=== PATIENT | male | born 1990 | race Two or more races ===

== ENCOUNTER 2023-05-27 20:13 | Emergency (ER) | payer BC, OTHER ==
[2023-05-27 20:21] VITALS: TEMP 98.9
[2023-05-27] MEDS ORDERED: CEPHALEXIN 500MG STARTER PACK 4 CAP BTL PO STA (22:04)
[2023-05-27] MEDS ORDERED: DIPH,PERTUS(ACELL)TETVAC-LF 0.5 ML VIAL IM ONE (22:04)
[2023-05-27] MEDS ORDERED: CEPHALEXIN 500 MG CAP PO STA (22:04)
--- NOTE | 2023-05-27 22:04 | ED ---
Wound/Laceration HPI - General Chief Complaint: Wound/Laceration Stated Complaint: Left thumb laceration-[facility] Time Seen by Provider: 05/27/23 21:17 Source: patient, RN notes reviewed, old records reviewed Mode of arrival: ambulatory - History of Present Illness Initial Comments: This is a 33-year-old male to the emergency department for evaluation sustained left thumb laceration. 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 Patient was using a clean knife sharpening a knife and cut his left thumb. Patient does have pain and bleeding from the left decreased range of motion he believes secondary to pain. No other injury noted. Patient is unsure of tetanus status. No medical history takes no medications -: hour(s) Extremity Location: Left: Hand Place: home Patient Tetanus UTD: Yes Context: accidental Associated Symptoms: none Treatments Prior to Arrival: bandage - Related Data Allergies Allergy/AdvReac Type Severity Reaction Status Date / Time No Known Allergies Allergy Verified 05/27/23 20:19 Review of Systems ROS Statement: Those systems with pertinent positive or pertinent negative responses have been documented in the HPI. ROS Other: All systems not noted in ROS Statement are negative. Past Medical History Past Medical History: No Reported History History of Any Multi-Drug Resistant Organisms: None Reported Past Surgical History: No Surgical Hx Reported Past Psychological History: Anxiety Smoking Status: Never smoker Past Alcohol Use History: None Reported Past Drug Use History: None Reported General Exam General appearance: alert, in no apparent distress, anxious Head exam: Present: atraumatic, normocephalic, normal inspection Eye exam: Present: normal appearance, PERRL, EOMI. Absent: scleral icterus, conjunctival injection, periorbital swelling ENT exam: Present: normal exam, mucous membranes moist Neck exam: Present: normal inspection. Absent: tenderness, meningismus, lymphadenopathy Respiratory exam: Present: normal lung sounds bilaterally. Absent: respiratory distress, wheezes, rales, rhonchi, stridor Cardiovascular Exam: Present: regular rate, normal rhythm, normal heart sounds. Absent: systolic murmur, diastolic murmur, rubs, gallop, clicks GI/Abdominal exam: Present: soft, normal bowel sounds. Absent: distended, tenderness, guarding, rebound, rigid Extremities exam: Present: normal inspection, full ROM, normal capillary refill, other (Left thumb laceration 4 cm). Absent: tenderness, pedal edema, joint swelling, calf tenderness Back exam: Present: normal inspection Neurological exam: Present: alert, oriented X3, CN II-XII intact Psychiatric exam: Present: normal affect, normal mood Skin exam: Present: warm, dry, intact, normal color. Absent: rash Course Vital Signs 05/27/23 05/27/23 20:17 22:28 Temperature 98.9 F Pulse Rate 90 76 Respiratory 18 16 Rate Blood Pressure 129/79 126/77 O2 Sat by Pulse 95 Oximetry - Reevaluation(s) Reevaluation #1: 05/27/23 22:01 Medical records reviewed Reevaluation #2: 05/27/23 22:01 Patient symptoms improved Reevaluation #3: 05/27/23 22:01 patient informed results questions are answered Reevaluation #4: 05/27/23 Was pt. sent in by a medical professional or institution ([facility], [facility], urgent care, hospital, or senior living...) When possible be specific @ -no Did you speak to anyone other than the patient for history (EMS, parent, family, police, friend...)? What history was obtained from this source @ -no Did you review nursing and triage notes (agree or disagree)? Why? @ -agree Are old charts reviewed (outside hosp., previous admission, EMS record, old EKG, old radiological studies, urgent care reports/EKG's, senior living records)? Report findings @ -yes Differential Diagnosis (chest pain, altered mental status, abdominal pain women, abdominal pain men, vaginal bleeding, weakness, fever, dyspnea, syncope, headache, dizziness, GI bleed, back pain, seizure, CVA, palpatations, mental health, musculoskeletal)? @ -prior EKG interpreted by me (3pts min.). @ -no X-rays interpreted by me (1pt min.). @ -no CT interpreted by me (1pt min.). @ -no U/S interpreted by me (1pt. min.). @ -no What testing was considered but not performed or refused? (CT, X-rays, U/S, labs)? Why? @ -none What meds were considered but not given or refused? Why? @ -none Did you discuss the management of the patient with other professionals (professionals i.e. [facility], [facility], lab, RT, psych nurse, social sciences lecturer, baseball winder, teacher, tactical intelligence officer, hospice case manager)? Give summary @ -no Was smoking cessation discussed for >3mins.? @ -no Was critical care preformed (if so, how long)? @ -no Were there social determinants of health that impacted care today? How? (Homelessness, low income, unemployed, alcoholism, drug addiction, transpor tation, low edu. Level, literacy, decrease access to med. care, assisted, rehab)? @ -none Was there de-escalation of care discussed even if they declined (Discuss DNR or withdrawal of care, Hospice)? DNR status @ -no What co-morbidities impacted this encounter? (DM, HTN, Smoking, COPD, CAD, Cancer, CVA, ARF, Chemo, Hep., AIDS, mental health diagnosis, sleep apnea, morbid obesity)? @ -none Was patient admitted / discharged? Hospital course, mention meds given and route, prescriptions, significant lab abnormalities, going to OR and other pertinent info. @ - 33 male to the emergency department with self-sustaining left thumb laceration, knife clean knife working in the kitchen. Lacerations repaired here in the ER there is questionable tenderness injury is patient does not fully move that, although we do believe that wrist pain. Lacerations repaired no bleeding patient can be discharged home Discharge Undiagnosed new problem with uncertain prognosis? @ -no Drug Therapy requiring intensive monitoring for toxicity (Heparin, Nitro, Insulin, Cardizem)? @ -no Were any procedures done? @ -Laceration repair Diagnosis/symptom? @ -Left thumb laceration with repair Acute, or Chronic, or Acute on Chronic? @ -Acute Uncomplicated (without systemic symptoms) or Complicated (systemic symptoms)? @ -Complicated Side effects of treatment? @ -no Exacerbation, Progression, or Severe Exacerbation? @ -exacerbation Poses a threat to life or bodily function? How? (Chest pain, [place], [place], pneumonia, PE, COPD, DKA, ARF, appy, cholecystitis, CVA, Diverticulitis, Homicidal, Suicidal, threat to staff... and all critical care pts) @ -no Procedures - Laceration Laceration #1 Consent Obtained: verbal consent Indication: laceration Site: hand Size (cm): 4 Description: linear Depth: simple, single layer Anesthetic Used: lidocaine 1% Anesthesia Technique: local infiltration Pre-repair: wound explored, irrigated extensively, deep structures intact Type of Sutures: nylon Size of Sutures: 5-0 Technique: simple, interrupted Patient Tolerated Procedure: well Medical Decision Making - Medical Decision Making 33 male to the emergency department with self-sustaining left thumb laceration, knife clean knife working in the kitchen. Lacerations repaired here in the ER there is questionable tenderness injury is patient does not fully move that, although we do believe that wrist pain. Lacerations repaired no bleeding patient can be discharged home Disposition Clinical Impression: Laceration, Laceration of left thumb Narrative: Question Tendon Injury Disposition: HOME SELF-CARE Condition: Good Instructions (If sedation given, give patient instructions): Care For Your Stitches (ED), Laceration (ED) Is patient prescribed a controlled substance at d/c from ED?: No Referrals: None,Stated [Primary Care Provider] - 1-2 days Time of Disposition: 22:00
[2023-05-27] MEDS ORDERED: BACITRACIN OINT 1 EACH PACKET TOPICAL ONE (22:05)
[2023-05-27 22:34] VITALS: BP 126/77; PULSE 76; RESP 16
== END 2023-05-27 22:35 | disposition home or self-care (01) ==
LOC: EC 20:13
DX: S61.012A Laceration without foreign body of left thumb without damage to nail, initial encounter (principal); Z86.59 Personal history of other mental and behavioral disorders; Z23 Encounter for immunization; W26.0XXA Contact with knife, initial encounter
CPT/HCPCS: 12002; 90471; 90715; 99282

== ENCOUNTER → 2023-12-04 | Outpatient (CLI) | payer SELFPAY ==
--- NOTE | 2023-12-04 16:15 | US ---
EXAMINATION TYPE: US scrotum with doppler. Grayscale and color Doppler Duplex imaging performed of julia aguirre scrotum. DATE OF EXAM: 12/04/2023 COMPARISON: NONE CLINICAL INDICATION: Male, 33 years old with history of N50.812 LEFT TESTICULAR PAIN; Pt states left testicle pain x 2 days EXAM MEASUREMENTS: TESTICLES: Right Testicle: 5.1 x 2.8 x 3.2 cm Left Testicle: 4.4 x 2.8 x 3.1 cm EPIDIDYMIS HEAD: Right Epididymis: 1.1 cm Left Epididymis: 1.3 cm Doppler performed to assess for testicular vascularity; good bilateral color flow and waveforms are s een. There is no evidence of testicular torsion. Presence of hydroceles: NO Presence of varicoceles: No Right epi head cyst= 0.4 cm Left epi head cyst= 0.8 cm Left epididymis appeared thickened, heterogeneous and slightly hypervascular Results called to Geeta at 's office at time of exam IMPRESSION: 1. Correlate for left-sided epididymitis. 2. Epididymal head cysts.
== END | disposition home or self-care (01) ==
LOC: RADUSWWP 15:07
PROVIDERS: ATTEND Family Medicine
DX: N50.3 Cyst of epididymis (principal)
CPT/HCPCS: 76870; 93975

== ENCOUNTER 2024-07-03 17:05 | Observation (INO) | payer OTHER ==
--- NOTE | 2024-07-03 17:46 | ED ---
Skin/Abscess/FB HPI - General Chief complaint: Skin/Abscess/Foreign Body Stated complaint: Skin Abscess Time Seen by Provider: 07/03/24 17:23 Source: patient, RN notes reviewed Mode of arrival: ambulatory Limitations: no limitations - History of Present Illness Initial comments: This is a 34-year-old male who presents to the emergency department for a rectal abscess. Patient states that he noticed a lump on the rectum a couple of days ago and since then it has gotten larger. He initially thought this was a hemorrhoid. He went to urgent care and they advised that this may be an abscess and he was advised to come to the emergency department for further evaluation. Patient noted be febrile here. He has not measured any fevers at home. Denies any history of abscesses in the past, but states that the pain is becoming fairly bothersome. MD complaint: abscess/boil - Related Data Allergies Allergy/AdvReac Type Severity Reaction Status Date / Time No Known Allergies Allergy Verified 07/03/24 17:20 Review of Systems ROS Statement: Those systems with pertinent positive or pertinent negative responses have been documented in the HPI. ROS Other: All systems not noted in ROS Statement are negative. Past Medical History Past Medical History: No Reported History History of Any Multi-Drug Resistant Organisms: None Reported Past Surgical History: No Surgical Hx Reported Past Psychological History: Anxiety Smoking Status: Never smoker Past Alcohol Use History: None Reported Past Drug Use History: None Reported General Exam Limitations: no limitations General appearance: alert, in no apparent distress Head exam: Present: atraumatic, normocephalic, normal inspection Respiratory exam: Present: normal lung sounds bilaterally. Absent: respiratory distress, wheezes, rales, rhonchi, stridor Cardiovascular Exam: Present: tachycardia, normal heart sounds Rectal exam: Present: other (Perianal abscess at the superior aspect of the anus extending past the dentate line. Overlying tenderness. No drainage.) Neurological exam: Present: alert, oriented X3, CN II-XII intact Psychiatric exam: Present: normal affect, normal mood Course Vital Signs 07/03/24 07/03/24 07/03/24 17:15 19:38 21:18 Temperature 101.5 F H 99.7 F H 99.0 F Pulse Rate 118 H 95 Respiratory 20 18 Rate Blood Pressure 130/84 110/66 O2 Sat by Pulse 99 95 Oximetry 07/03/24 22:27 Temperature 98.6 F Pulse Rate 93 Respiratory 18 Rate Blood Pressure 125/81 O2 Sat by Pulse 97 Oximetry Medical Decision Making - Medical Decision Making This is a 34 year old male who presents to the emergency department for a rectal abscess. Was pt. sent in by a medical professional or institution? @ -Urgent care Did you speak to anyone other than the patient for history? @ -No Did you review nursing and triage notes? @ -Yes, and I agree, it is accurate with regards to the patient's symptoms. Were old charts reviewed? @ -No Differential Diagnosis? @ -Differential Rectal Lump: Abscess, hemorrhoid, pilonidal cyst, tumor, this is not meant to be an all-incl usive list. EKG interpreted by me (3pts min.)? @ -Not obtained X-rays interpreted by me (1pt min.)? @ -Not obtained CT interpreted by me (1pt min.)? @ -CT scan of the abdomen and pelvis obtained. My interpretation identifies a perirectal abscess. U/S interpreted by me (1pt. min.)? @ -Not obtained What testing was considered but not performed? (CT, X-rays, U/S, labs)? Why? @ -None What meds were considered but not given? Why? @ -None Did you discuss the management of the patient with other professionals? @ -Yes, Dr. Salazar, who accepts the patient for admission. Did you reconcile home meds? @ -No Was smoking cessation discussed for >3mins.? @ -No Was critical care preformed (if so, how long)? @ -No Were there social determinants of health that impacted care today? How? (Homelessness, low income, unemployed, alcoholism, drug addiction, transportation, low edu. Level, literacy, decrease access to med. care, long term, r ehab)? @ -No Was there de-escalation of care discussed even if they declined? (Discuss DNR or withdrawal of care, Hospice)? @ -No What co-morbidities impacted this encounter? (DM, HTN, Smoking, COPD, CAD, Cancer, CVA, Hep., AIDS, mental health diagnosis, sleep apnea, morbid obesity)? @ -None Was patient admitted / discharged? @ -Admitted. Patient febrile and tachycardic on arrival. On exam patient's abscess was on the superior aspect of the anus and appeared to approach/pass the dentate line. There was concern that if we were to bhavik this, there could be damage to the sphincter muscles and we discussed that it be best to have a surgeon manage this. Patient initially hesitant due to insurance difficulties but later agreeable to admission. Lab work fairly unremarkable, CRP was elevated at 4.2. CT scan of the abdomen and pelvis demonstrates a posterior perirectal fluid collection suggesting an abscess. Patient admitted to medicine for perirectal abscess with general surgery consult. IV antibiotics administered. Patient kept n.p.o. after midnight for potential surgical intervention in the morning. Case management consulted to help the patient with getting established with medical insurance. Case discussed with ED attending, Dr. Brady. Undiagnosed new problem with uncertain prognosis? @ -None Drug Therapy requiring intensive monitoring for toxicity (Heparin, Nitro, Insulin, Cardizem)? @ -None Were any procedures done? @ -None Diagnosis/symptom? @ -Perirectal abscess Acute, or Chronic, or Acute on Chronic? @ -Acute Uncomplicated (without systemic symptoms) or Complicated (systemic symptoms)? @ -Uncomplicated Side effects of treatment? @ -None Exacerbation, Progression, or Severe Exacerbation] @ -Not applicable Poses a threat to life or bodily function? @ -Yes, can lead to severe infection - Lab Data Result diagrams: 07/03/24 19:05 07/03/24 19:05 Lab Results 07/03/24 07/03/24 07/03/24 Range/Units 19:05 19:05 19:05 WBC 7.1 (3.8-10.6) k/uL RBC 4.50 (4.30-5.90) m/uL Hgb 13.2 (13.0-17.5) gm/dL Hct 39.7 (39.0-53.0) % MCV 88.3 (80.0-100.0) fL MCH 29.2 (25.0-35.0) pg MCHC 33.1 (31.0-37.0) g/dL RDW 13.3 (11.5-15.5) % Plt Count 194 (150-450) k/uL MPV 7.4 Neutrophils % 88 % Lymphocytes % 7 % Monocytes % 4 % Eosinophils % 0 % Basophils % 0 % Neutrophils # 6.2 (1.3-7.7) k/uL Lymphocytes # 0.5 L (1.0-4.8) k/uL Monocytes # 0.3 (0-1.0) k/uL Eosinophils # 0.0 (0-0.7) k/uL Basophils # 0.0 (0-0.2) k/uL Sodium 135 L (137-145) mmol/L Potassium 3.6 (3.5-5.1) mmol/L Chloride 101 (98-107) mmol/L Carbon Dioxide 26 (22-30) mmol/L Anion Gap 8 mmol/L BUN 18 (9-20) mg/dL Creatinine 0.81 (0.66-1.25) mg/dL Est GFR (CKD-EPI)AfAm >90 (>60 ml/min/1.73 sqM) Est GFR (CKD-EPI)NonAf >90 (>60 ml/min/1.73 sqM) Glucose 89 (74-99) mg/dL Plasma Lactic Acid Bishnu 0.9 (0.7-2.0) mmol/L Calcium 9.7 (8.4-10.2) mg/dL Total Bilirubin 1.6 H (0.2-1.3) mg/dL AST 29 (17-59) U/L ALT 11 (4-49) U/L Alkaline Phosphatase 93 (38-126) U/L C-Reactive Protein 4.2 H (<1.0) mg/dL Total Protein 7.0 (6.3-8.2) g/dL Albumin 4.6 (3.5-5.0) g/dL - Radiology Data Radiology results: report reviewed, image reviewed Disposition Clinical Impression: Perirectal abscess Disposition: ADMITTED IP TO THIS HOSP
[2024-07-03] MEDS: ACETAMINOPHEN TAB 500 MG TAB PO STA (18:09)
[2024-07-03] MEDS: KETOROLAC 15 MG/ML 1 ML VIAL IM STA (18:09)
[2024-07-03] MEDS: MORPHINE SULFATE 4 MG/ML SYRINGE IM STA (18:10)
[2024-07-03] MEDS: LIDOCAINE 1% INJ 10MG/ML (20 ML MDV) SQ ONE (18:13)
[2024-07-03] MEDS ORDERED: VANCOMYCIN IV PER PHARMACY 1 EACH MISC MISCELLANE PRN (19:03)
[2024-07-03 19:29] LABS: Basophils % (A) 0 %; Eosinophils % (A) 0 %; HCT 39.7 % (39.0-53.0); HGB 13.2 gm/dL (13.0-17.5); Lymphocytes # (A) 0.5 k/uL (1.0-4.8); Lymphocytes % (A) 7 %; MCH 29.2 pg (25.0-35.0); MCHC 33.1 g/dL (31.0-37.0); MCV 88.3 fL (80.0-100.0); Mean Platelet Volume 7.4; Monocytes # (A) 0.3 k/uL (0-1.0); Monocytes % (A) 4 %; Neutrophils # (A) 6.2 k/uL (1.3-7.7); Neutrophils % (A) 88 %; Platelet Count 194 k/uL (150-450); RDW 13.3 % (11.5-15.5); WBC 7.1 k/uL (3.8-10.6)
[2024-07-03] MEDS: CEFEPIME 2 GM in SODIUM CHLORIDE 0.9% 100 ML IVPB SCH (19:34)
[2024-07-03 19:43] LABS: ALT 11 U/L (4-49); AST 29 U/L (17-59); African American GFR (CKD) >90 (>60 ml/min/1.73 sqM); Albumin 4.6 g/dL (3.5-5.0); Alkaline Phosphatase 93 U/L (38-126); Anion Gap 8 mmol/L; Blood Urea Nitrogen 18 mg/dL (9-20); C Reactive Protein 4.2 mg/dL (<1.0); Calcium 9.7 mg/dL (8.4-10.2); Carbon Dioxide 26 mmol/L (22-30); Chloride 101 mmol/L (98-107); Glucose 89 mg/dL (74-99); Non-African American GFR(CKD) >90 (>60 ml/min/1.73 sqM); Potassium 3.6 mmol/L (3.5-5.1); Sodium 135 mmol/L (137-145); Total Bilirubin 1.6 mg/dL (0.2-1.3)
[2024-07-03] MEDS: VANCOMYCIN 1,000 MG in SODIUM CHLORIDE 0.9% 250 ML IVPB STA (20:19)
[2024-07-03] MEDS: HYDROmorphone 1 MG/ML 1 ML SYRINGE IVP STA (22:00)
--- NOTE | 2024-07-03 22:20 | CT ---
EXAMINATION TYPE: CT abdomen pelvis w con CT DLP: 466.5 mGycm, Automated exposure control for dose reduction was used. DATE OF EXAM: 07/03/2024 8:23 PM COMPARISON: None. CLINICAL INDICATION:Male, 34 years old with history of Rectal abscess; Rectal abscess TECHNIQUE: Axial CT of the abdomen and pelvis. Sagittal and coronal reformats were created on a [employer] workstation. Contrast used:100 ml mL of Isovue 300 with IV Contrast, (none if empty) Oral contrast used: without Oral Contrast (none if empty) FINDINGS: LOWER CHEST: Unremarkable ABDOMEN LIVER: Unremarkable GALLBLADDER AND BILE DUCTS: Unremarkable gallbladder. No biliary ductal dilatation. PANCREAS: Unremarkable. SPLEEN: Unremarkable. ADRENAL GLANDS: Unremarkable. KIDNEYS AND URETERS: Kidneys enhance symmetrically. No evidence of hydronephrosis or visible renal ca lculus. The ureters are unremarkable. PELVIS BLADDER: Unremarkable REPRODUCTIVE: Unremarkable. ABDOMEN & PELVIS STOMACH AND BOWEL: Stomach and small bowel are nondistended, no evidence of obstruction. No signs of appendicitis. Mild/moderate stool throughout the colon. At the posterior aspect of the distal rectum near the midline there is a 19.5 x 13 mm fluid collection suggesting perirectal abscess. Mild edema a nd cellulitis suggested in the soft tissues posterior to this along the upper intergluteal crease. PERITONEUM/RETROPERITONEUM: No evidence of pneumoperitoneum or free fluid. VASCULATURE: Aorta and major branches are grossly unremarkable. No AAA. Portal veins are enhancing. Splenic vein is patent. Normal caliber IVC. LYMPH NODES: No enlarged nodes by CT size criteria. SOFT TISSUE/ABDOMINAL WALL: Unremarkable MUSCULOSKELETAL: No acute osseous abnormalities. IMPRESSION: Posterior perirectal fluid collection suggesting abscess, described above.
[2024-07-03] MEDS: ONDANSETRON 4 MG/2 ML VIAL IVP STA (22:39)
[2024-07-03] MEDS ORDERED: ONDANSETRON 4 MG/2 ML VIAL IVP PRN (23:20)
[2024-07-03] MEDS ORDERED: ACETAMINOPHEN TAB 325 MG TAB PO PRN (23:20)
[2024-07-03] MEDS ORDERED: NALOXONE 0.4 MG/ML 1 ML VIAL IV PRN (23:20)
[2024-07-03] MEDS ORDERED: IBUPROFEN 400 MG TAB PO PRN (23:20)
[2024-07-03] MEDS: METOCLOPRAMIDE 5 MG/ML 2 ML VIAL IVP STA (23:45)
[2024-07-03] MEDS: AMPICILLIN-SULBACTAM 3 GM in SODIUM CHLORIDE 0.9% 100 ML IVPB STA (23:48)
--- NOTE | 2024-07-04 00:58 | P.HPIM ---
History of Present Illness H&P Date: 07/03/24 Chief Complaint: rectal pain Patient is a 34-year-old male with no medical history presents to the ED with rectal abscess. Patient states he noticed an irritation and itch 2 days ago which improved which progressively turned into a lump that kept getting worse. He describes it as a red, tender, fluctuating mass with no drainage. At worst he said the pain was a 10/10 to the point where he found it difficult bending and squatting. The pain was made worse when he coughed. States that this has never happened before and has no history of any abscesses. He went to urgent care and was advised to go to the emergency department for further evaluation Patient denies any fevers or chills. Review of systems: Pertinent positives and negatives as discussed in HPI, a complete review of systems was performed and all other systems are negative. Social history: Tobacco: Denies tobacco use Alcohol: Denies alcohol use Recreational drugs: Denies illicit drug use Travel: No recent travel Occupation: Did not obtain Physical examination: Vitals: T 98.6, [place] 93, RR 18, BP 125/81, O2 sat 97% on room air General: non toxic, no distress, appears at stated age, normal weight Derm: no unusual rashes/lesions, warm Head: atraumatic, normocephalic, symmetric Eyes: EOMI, anicteric sclera, pupils equal round reactive to light ENT: Nose and ears atraumatic Mouth: no lip lesion, mucus membranes moist Cardiovascular: S1S2 reg, no murmur, positive dorsalis pedis pulse bilateral, no edema Lungs: CTA bilateral, no rhonchi, no rales, no accessory muscle use Abdominal: soft, nontender to palpation, no guarding Rectal: Anorectal abscess present with tenderness on palpation, no drainage noted Ext: muscle strength 5 out of 5 in all 4 extremities grossly, no gross muscle atrophy Neuro: CN II-XI grossly intact, no gross focal neuro deficits Psych: Alert, oriented to person, place, and time Assessment/Plan: Patient is a 34-year-old male with no medical history presents to the ED with rectal abscess. ED documentation reviewed and case discussed with ED provider. The patient is admitted with an anticipated less than 2 midnight stay for evaluation of perirectal abscess. #. Sepsis 2/2 Perirectal abscess Patient with fever of 101.5 F in the ED but has gone down to 98.[address] posterior perirectal fluid collection suggesting abscess CBC unremarkable with no elevated white count CRP 4.2 Blood cultures ordered ESR ordered Follow-up CBC in the morning NPO after midnight Pain management: Acetaminophen 650 mg PO q6hr PRN, [place] 5325 p.o. Q4HR PRN, was given Dilaudid 1 mg IVP once by ED On IV vancomycin dosed by pharmacy Monitor vitals per floor protocol, monitor for fever Surgery consulted, likely unasyn 3 gm IVPB q6hr F: N/A E: Replete electrolytes as needed N: NPO after midnight A: Ambulatory DVT prophylaxis: Lovenox 40 SQ daily Past Medical History Past Medical History: No Reported History History of Any Multi-Drug Resistant Organisms: None Reported Past Surgical History: No Surgical Hx Reported Past Psychological History: Anxiety Smoking Status: Never smoker Past Alcohol Use History: None Reported Past Drug Use History: None Reported Medications and Allergies Allergies Allergy/AdvReac Type Severity Reaction Status Date / Time No Known Allergies Allergy Verified 07/03/24 17:20 Physical Exam Vitals: Vital Signs Temp Pulse Resp BP Pulse Ox 07/03/24 22:27 98.6 F 93 18 125/81 97 07/03/24 21:18 99.0 F 07/03/24 19:38 99.7 F H 95 18 110/66 95 07/03/24 17:15 101.5 F H 118 H 20 130/84 99 Intake and Output 07/03/24 07/03/24 07/04/24 14:59 22:59 06:59 Other: Weight 55.792 kg Results CBC & Chem 7: 07/03/24 19:05 07/03/24 19:05 Labs: Abnormal Lab Results - Last 24 Hours (Table) 07/03/24 07/03/24 Range/Units 19:05 19:05 Lymphocytes # 0.5 L (1.0-4.8) k/uL Sodium 135 L (137-145) mmol/L Total Bilirubin 1.6 H (0.2-1.3) mg/dL C-Reactive Protein 4.2 H (<1.0) mg/dL Assessment and Plan Assessment: I personally saw and examined the patient independently I discussed the case wit h the resident agree with documented H&P and assessment and plan as documented and amended in blue font where necessary
[2024-07-04] MEDS: SODIUM CHLORIDE 0.9% 1,000 ML IV SCH (02:13)
[2024-07-04] MEDS: KETOROLAC 15 MG/ML 1 ML VIAL IVP PRN (03:35)
[2024-07-04 03:50] LABS: Erythrocyte Sedimentation Rate 41 mm/Hr (0-15)
[2024-07-04] MEDS: VANCOMYCIN 1,000 MG in SODIUM CHLORIDE 0.9% 250 ML IVPB SCH (04:48)
[2024-07-04] MEDS: AMPICILLIN-SULBACTAM 3 GM in SODIUM CHLORIDE 0.9% 100 ML IVPB SCH (06:55)
[2024-07-04] MEDS: MORPHINE SULFATE 4 MG/ML SYRINGE IV PRN (07:10)
[2024-07-04] MEDS: HYDROcodone/APAP 5-325MG 1 EACH TAB PO PRN (08:50)
[2024-07-04] MEDS: ENOXAPARIN 40 MG/0.4 ML SYRINGE SQ SCH (08:51)
--- NOTE | 2024-07-04 11:52 | P.GSCN ---
History of Present Illness Consult date: 07/04/24 Reason for Consult: Perirectal abscess History of present illness: 34-year-old male presents with a 4-day history of increasing pain posterior midline perianal region. Patient says first he felt some soreness there then he noticed swelling. Has not noticed any drainage. No history of similar events or trauma. Patient had a CAT scan showing a perirectal abscess in the midline posteriorly. Normal bowel function. Patient had a fever of 101. White blood cell count normal. Review of Systems The patient denies any acute changes in vision or hearing, no dysphagia or odynophagia, no chest pain or shortness of breath, no dysuria or hematuria, no headache, no runny nose, no rectal bleeding or melena, no unexplained weight loss Past Medical History Past Medical History: No Reported History Additional Past Medical History / Comment(s): shortness of breath with strenuous activities History of Any Multi-Drug Resistant Organisms: None Reported Past Surgical History: No Surgical Hx Reported Past Anesthesia/Blood Transfusion Reactions: No Reported Reaction Past Psychological History: Anxiety Smoking Status: Former smoker Past Alcohol Use History: None Reported Past Drug Use History: None Reported - Past Family History Mother Family Medical History: CVA/TIA, Memory Impairment Father Family Medical History: Myocardial Infarction ([place]) Medications and Allergies Home Medications Medication Instructions Recorded Confirmed Type No Known Home Medications 07/04/24 07/04/24 History Allergies Allergy/AdvReac Type Severity Reaction Status Date / Time No Known Allergies Allergy Verified 07/04/24 07:00 Surgical - Exam Vital Signs Temp Pulse Resp BP Pulse Ox 101.5 F H 118 H 20 130/84 99 07/03/24 17:15 07/03/24 17:15 07/03/24 17:15 07/03/24 17:15 07/03/24 17:15 Physical exam: General: Well-developed, well-nourished HEENT: Normocephalic, sclerae nonicteric Abdomen: Nontender, nondistended Extremities: No edema Neuro: Alert and oriented Perianal evaluation reveals a large subcutaneous fluctuant tender mass posterior midline consistent with abscess, mild erythema, no drainage, this measures 2.5 to 3.5 cm Results - Labs 07/03/24 19:05 07/03/24 19:05 Abnormal Lab Results - Last 24 Hours (Table) 07/03/24 07/03/24 Range/Units 19:05 19:05 Lymphocytes # 0.5 L (1.0-4.8) k/uL ESR 41 H (0-15) mm/Hr Sodium 135 L (137-145) mmol/L Total Bilirubin 1.6 H (0.2-1.3) mg/dL C-Reactive Protein 4.2 H (<1.0) mg/dL Diabetes panel 07/03/24 Range/Units 19:05 Sodium 135 L (137-145) mmol/L Potassium 3.6 (3.5-5.1) mmol/L Chloride 101 (98-107) mmol/L Carbon Dioxide 26 (22-30) mmol/L BUN 18 (9-20) mg/dL Creatinine 0.81 (0.66-1.25) mg/dL Glucose 89 (74-99) mg/dL Calcium 9.7 (8.4-10.2) mg/dL AST 29 (17-59) U/L ALT 11 (4-49) U/L Alkaline Phosphatase 93 (38-126) U/L Total Protein 7.0 (6.3-8.2) g/dL Albumin 4.6 (3.5-5.0) g/dL Calcium panel 07/03/24 Range/Units 19:05 Calcium 9.7 (8.4-10.2) mg/dL Albumin 4.6 (3.5-5.0) g/dL Pituitary panel 07/03/24 Range/Units 19:05 Sodium 135 L (137-145) mmol/L Potassium 3.6 (3.5-5.1) mmol/L Chloride 101 (98-107) mmol/L Carbon Dioxide 26 (22-30) mmol/L BUN 18 (9-20) mg/dL Creatinine 0.81 (0.66-1.25) mg/dL Glucose 89 (74-99) mg/dL Calcium 9.7 (8.4-10.2) mg/dL Adrenal panel 07/03/24 Range/Units 19:05 Sodium 135 L (137-145) mmol/L Potassium 3.6 (3.5-5.1) mmol/L Chloride 101 (98-107) mmol/L Carbon Dioxide 26 (22-30) mmol/L BUN 18 (9-20) mg/dL Creatinine 0.81 (0.66-1.25) mg/dL Glucose 89 (74-99) mg/dL Calcium 9.7 (8.4-10.2) mg/dL Total Bilirubin 1.6 H (0.2-1.3) mg/dL AST 29 (17-59) U/L ALT 11 (4-49) U/L Alkaline Phosphatase 93 (38-126) U/L Total Protein 7.0 (6.3-8.2) g/dL Albumin 4.6 (3.5-5.0) g/dL Assessment and Plan (1) Perirectal abscess Narrative/Plan: 34-year-old male with perirectal abscess. Will proceed with incision and drainage perirectal abscess. Discussed with patient that ideally this would be performed through transanal or transrectal approach however given the superfi cial nature this may require radial incision posterior midline. Cultures will be taken. Area will likely be packed open. Discussed risks of bleeding, further infection, recurrence, fistula, incontinence. Patient understands and wishes to proceed. Current Visit: Yes Status: Acute Code(s): K61.1 - RECTAL ABSCESS SNOMED Code(s): 92687132
[2024-07-04] MEDS: ONDANSETRON 4 MG/2 ML VIAL IVP PRN (11:53)
[2024-07-04] MEDS: DEXAMETHASONE SOD PHOSPHATE 4 MG/ML 1 ML VIAL IVP STA (11:53)
[2024-07-04] MEDS ORDERED: PROPOFOL 10 MG/ML 20 ML VIAL IV ONE (12:00)
[2024-07-04] MEDS ORDERED: KETOROLAC 15 MG/ML 1 ML VIAL ONE (12:00)
[2024-07-04] MEDS ORDERED: KETAMINE HCL IN 0.9 % NACL 50 MG/5 ML SYRINGE ONE (12:00)
[2024-07-04] MEDS ORDERED: fentaNYL (PF) 50 MCG/ML 2 ML AMP ONE (12:00)
[2024-07-04] MEDS: IV FLUID CONTINUATION 800 ML IV ONE (12:00)
[2024-07-04] MEDS ORDERED: LIDOCAINE 1% INJ 10MG/ML (20 ML MDV) ONE (12:00)
[2024-07-04] MEDS ORDERED: SUCCINYLCHOLINE CHLORIDE 200 MG/10 ML VIAL IV ONE (12:00)
[2024-07-04] MEDS ORDERED: MIDAZOLAM 2 MG/2 ML VIAL ONE (12:00)
[2024-07-04 12:22] LABS: Sodium 135 mmol/L (137-145)
[2024-07-04 12:23] LABS: African American GFR (CKD) >90 (>60 ml/min/1.73 sqM); Anion Gap 10 mmol/L; Blood Urea Nitrogen 22 mg/dL (9-20); Calcium 9.1 mg/dL (8.4-10.2); Carbon Dioxide 29 mmol/L (22-30); Chloride 96 mmol/L (98-107); Glucose 85 mg/dL (74-99); Non-African American GFR(CKD) >90 (>60 ml/min/1.73 sqM); Potassium 3.6 mmol/L (3.5-5.1)
--- NOTE | 2024-07-04 12:43 | P.OP ---
Date of Procedure: 07/04/24 Procedure(s) Performed: PREOPERATIVE DIAGNOSIS: Perirectal abscess POSTOPERATIVE DIAGNOSIS: Same PROCEDURE: Incision and drainage perirectal abscess SURGEON: Skye EBL: 5 cc ANESTHESIA: General COMPLICATIONS: None OPERATIVE PROCEDURE: Patient placed in the prone jackknife position. Patient when seen in preop had a abscess that was not draining. Once the patient was positioned on the operating table and placed under general anesthesia it was noted that there was purulent fluid coming from the center of the abscess. The opening was present 1 cm from the anal verge. A small incision made at that location in a radial fashion. Entrance into a subcutaneous cavity measuring [address] This was cultured. This was then irrigated with saline. The wound was probed. This did go in the midline posteriorly and as we were inspecting the rectum visually the probe was noted to be immediately deep to the mucosal surface there. After further irrigation the wound was packed with quarter inch iodophor gauze. Sterile outer dressing applied. DISPOSITION: Stable to recovery room
[2024-07-04] MEDS: fentaNYL (PF) 50 MCG/ML 2 ML AMP IVP STA (13:36)
[2024-07-04] MEDS: IV FLUID CONTINUATION 1,000 ML IV ONE (13:41)
--- NOTE | 2024-07-04 17:00 | P.PN ---
Subjective Progress Note Date: 07/04/24 Subjective: Patient seen and examined at bedside. Patient states that the pain has decreased somewhat but worsens with movement. All Systems reviewed and pertinent positives and negatives noted in HPI, all other symptoms are negative Objective: Vital signs reviewed. General: non toxic, no distress, appears at stated age, normal weight Derm: no unusual rashes/lesions, warm Head: atraumatic, normocephalic, symmetric Eyes: EOMI, no lid lag, anicteric sclera, pupils equal round reactive to light ENT: Nose and ears atraumatic Neck: No cervical lymphadenopathy, trachea midline, supple Mouth: no lip lesion, mucus membranes moist Cardiovascular: S1S2 reg, no murmur, positive dorsalis pedis pulse bilateral, no edema Lungs: CTA bilateral, no rhonchi, no rales, no accessory muscle use Abdominal: soft, nontender to palpation, no guarding Ext: muscle strength 5 out of 5 in all 4 extremities grossly, no gross muscle atrophy, no contractures, Neuro: CN II-XI grossly intact, no gross focal neuro deficits Psych: Alert, oriented, appropriate affect Rectal exam not performed. Data reviewed today: Labs: Sodium 135, potassium 3.6, chloride 96, bicarbonate 29, BUN 22, creatinine 0.5 Images: No new imaging Assessment and Plan: 34-year-old male with no significant past medical history presented to the ER with rectal abscess. Patient is admitted for incision and drainage of the perirectal abscess. Surgery consulted. I&D performed on 07/04/2024. #Sepsis 2/2 Perirectal abscess, status post I&D CT posterior perirectal fluid collection suggesting abscess ESR 41 CRP 4.2 Blood cultures results pending Pain management: Acetaminophen 650 mg PO q6hr PRN, [place] 5325 p.o. Q4HR PRN, was given Dilaudid 1 mg IVP once by ED, IV morphine as needed, monitor for sedation On IV vancomycin dosed by pharmacy, monitor for renal toxicity Surgery following Unasyn 3 g IVPB every 6 hours Monitor CBC and BMP in a.m. #Mild hyponatremia, likely hypovolemic Sodium 135 Monitor BMP -Continue normal saline 75 cc an hour F: IV normal saline 75 cc/h E: Replete as needed N: Regular diet A: Ambulatory DVT ppx: Lovenox 40 mg subcu daily Code Status: Full code Anticipated discharge place: Pending clinical course Anticipated discharge date: Pending clinical course I have seen and evaluated the patient today. Discussed with the resident and agree with the residents finding and plan as documented in the resident's note. Changes highlighted in blue font. Objective - Vital Signs Vital signs: Vital Signs Temp 97.8 F 07/04/24 14:23 Pulse 73 07/04/24 14:23 Resp 15 07/04/24 14:23 BP 110/70 07/04/24 14:23 Pulse Ox 99 07/04/24 14:23 FiO2 Intake & Output 07/03/24 07/04/24 07/04/24 18:59 06:59 18:59 Intake Total 1050 Output Total 2 Balance 1048 Weight 55.792 kg 55.792 kg Intake: IV 1050 Output: Estimated Blood Loss 2 - Labs CBC & Chem 7: 07/03/24 19:05 07/04/24 11:53 Labs: Abnormal Lab Results - Last 24 Hours (Table) 07/03/24 07/03/24 07/04/24 Range/Units 19:05 19:05 11:53 Lymphocytes # 0.5 L (1.0-4.8) k/uL ESR 41 H (0-15) mm/Hr Sodium 135 L 135 L (137-145) mmol/L Chloride 96 L (98-107) mmol/L BUN 22 H (9-20) mg/dL Total Bilirubin 1.6 H (0.2-1.3) mg/dL C-Reactive Protein 4.2 H (<1.0) mg/dL
[2024-07-04 19:17] VITALS: RESP 16
[2024-07-05 03:43] LABS: Basophils % (A) 0 %; Eosinophils % (A) 0 %; HCT 37.1 % (39.0-53.0); Lymphocytes # (A) 0.9 k/uL (1.0-4.8); Lymphocytes % (A) 20 %; MCH 29.3 pg (25.0-35.0); MCHC 32.3 g/dL (31.0-37.0); MCV 90.7 fL (80.0-100.0); Mean Platelet Volume 7.7; Monocytes # (A) 0.3 k/uL (0-1.0); Monocytes % (A) 6 %; Neutrophils # (A) 3.2 k/uL (1.3-7.7); Neutrophils % (A) 72 %; Platelet Count 165 k/uL (150-450); RBC 4.09 m/uL (4.30-5.90); RDW 13.3 % (11.5-15.5); WBC 4.4 k/uL (3.8-10.6)
[2024-07-05 03:50] LABS: African American GFR (CKD) >90 (>60 ml/min/1.73 sqM); Non-African American GFR(CKD) >90 (>60 ml/min/1.73 sqM)
[2024-07-05] MEDS: VANCOMYCIN TROUGH DUE 1 EACH MISC MISCELLANE ONE (03:52)
[2024-07-05 04:12] LABS: African American GFR (CKD) >90 (>60 ml/min/1.73 sqM); Anion Gap 3 mmol/L; Blood Urea Nitrogen 22 mg/dL (9-20); Calcium 8.4 mg/dL (8.4-10.2); Carbon Dioxide 28 mmol/L (22-30); Chloride 107 mmol/L (98-107); Glucose 96 mg/dL (74-99); Non-African American GFR(CKD) >90 (>60 ml/min/1.73 sqM); Potassium 4.1 mmol/L (3.5-5.1); Sodium 138 mmol/L (137-145)
[2024-07-05 08:34] VITALS: BP 124/71; PULSE 77; TEMP 98.4
--- NOTE | 2024-07-05 11:17 | P.PN ---
Subjective Progress Note Date: 07/05/24 CHIEF COMPLAINT: Perirectal abscess HISTORY OF PRESENT ILLNESS: Patient postop day 1 status post incision and drainage of perirectal abscess. His pain is controlled. Afebrile. WBC 4.4 Hgb 12 PHYSICAL EXAM: VITAL SIGNS: Reviewed. GENERAL: Well-developed in no acute distress. Rectal: Perirectal area tender with palpation and incision site. No erythema. serosanguineous drainage noted on dressing ASSESSMENT: 1. Perirectal abscess status post incision and drainage PLAN: -Patient can be discharged from surgical standpoint -Recommend 1 week of antibiotics at discharge -Recommend showering daily. No packing needed at discharge. Physician [employer] Supervisor note has been reviewed by physician. Signing provider agrees with the documented findings, assessment, and plan of care. Objective - Vital Signs Vital signs: Vital Signs Temp 98.4 F 07/05/24 08:00 Pulse 77 07/05/24 08:00 Resp 16 07/05/24 08:00 BP 124/71 07/05/24 08:00 Pulse Ox 98 07/05/24 08:00 FiO2 Intake & Output 07/04/24 07/05/24 07/05/24 18:59 06:59 18:59 Intake Total 2880 Output Total 2 Balance 2878 Weight 55.792 kg Intake: IV 1050 Intake, IV Titration 1050 Amount Ampicillin-Sulbactam 3 gm 200 In Sodium Chloride 0.9% 100 ml @ 200 mls/hr IVPB Q6HR EMILIANO Rx#:[id number] Sodium Chloride 0.9% 1, 600 000 ml @ 75 mls/hr IV . [id number] EMILIANO Rx#:[id number] Vancomycin 1,000 mg In 250 Sodium Chloride 0.9% 250 ml @ 125 mls/hr IVPB Q8H EMILIANO Rx#:[id number] Oral 780 Output: Estimated Blood Loss 2 Other: Voiding Method Toilet # Voids 3 - Labs CBC & Chem 7: 07/05/24 03:21 07/05/24 03:21 Labs: Abnormal Lab Results - Last 24 Hours (Table) 07/04/24 07/05/24 07/05/24 Range/Units 11:53 03:21 03:21 RBC 4.09 L (4.30-5.90) m/uL Hgb 12.0 L (13.0-17.5) gm/dL Hct 37.1 L (39.0-53.0) % Lymphocytes # 0.9 L (1.0-4.8) k/uL Sodium 135 L (137-145) mmol/L Chloride 96 L (98-107) mmol/L BUN 22 H 22 H (9-20) mg/dL Microbiology - Last 24 Hours (Table) 07/04/24 12:35 Gram Stain - Preliminary Rectum 07/03/24 19:05 Blood Culture - Preliminary Blood
--- NOTE | 2024-07-05 13:45 | P.DS ---
Providers Date of admission: 07/03/24 23:21 Expected date of discharge: 07/05/24 Attending physician: Ty Salazar MD Consults: 07/03/24 23:20 Consult Physician Urgent Consulting Provider: Mike Cheung Consult Reason/Comments: Perirectal abscess Do you want consulting provider notified?: Yes Primary care physician: Stated None Hospital Course: Discharge Diagnosis: 1. Sepsis secondary to perirectal abscess, status post I&D 2. Hypovolemic hyponatremia Hospital Course: 34-year-old male with no significant past medical history presented to the ER with perirectal abscess. Patient is admitted to the hospital for sepsis secondary to perirectal abscess. Patient was started on IV antibiotic. CT abdomen pelvis on 07/03/2024 showed posterior perirectal fluid collection suggesting abscess. Surgery was consulted for incision and drainage of the perirectal abscess. I&D performed on 07/04/2024. Patient stable. Patient to be discharged on oral antibiotics. Levofloxacin 500 mg p.o. daily for 7 days, Flagyl 500 mg p.o. 3 times daily for 7 days. Patient is discharged on [place] 5-325 mg for pain. Advised no driving while taking [place]. Patient is advised to follow-up with PCP and in general surgery. Patient resume home with self-care. Vital signs reviewed. Gen: in no apparent distress, resting comfortably in bed Eyes: PERRL, no scleral injection or icterus HENT: normocephalic, atraumatic, good hearing acuity, moist mucous membranes Neck: full range of motion Resp: CTAB, no rales, rhonchi, or wheezes CVS: normal S1 and S2, no murmurs, rubs or gallops, no edema GI: soft, NTTP, ND, no hepatosplenomegaly : no suprapubic tenderness, no CVAT, beck catheter is not present MSK: no clubbing, no cyanosis, no noted contractures of extremities Skin: no noted rashes, petechiae; temperature of skin is appropriate Neuro: moving all extremities without signs of weakness, CN II-XII intact Psych: cooperative, euthymic mood, insight and judgment intact Rectal exam not performed. A total of 33 minutes of time were spent preparing this complex discharge summary. Patient was discharged on 07/05/2024 at 1107. I have seen and evaluated the patient today. Discussed with the resident and agree with the residents finding and plan as documented in the resident's note. Changes highlighted in blue font. Plan - Discharge Summary Discharge Rx Participant: No New Discharge Prescriptions: New HYDROcodone/APAP 5-325MG [[place] 5-325] 1 tab PO Q6HR PRN 3 Days #12 tab PRN Reason: Pain Levofloxacin [Levaquin] 500 mg PO DAILY 7 Days #7 tab metroNIDAZOLE [Flagyl] 500 mg PO TID #21 tab Discharge Medication List HYDROcodone/APAP 5-325MG [[place] 5-325] 1 tab PO Q6HR PRN 3 Days #12 tab 07/05/24 [Rx] Levofloxacin [Levaquin] 500 mg PO DAILY 7 Days #7 tab 07/05/24 [Rx] metroNIDAZOLE [Flagyl] 500 mg PO TID #21 tab 07/05/24 [Rx] Follow up Appointment(s)/Referral(s): Mike Cheung MD [Medical Doctor] - 07/11/24 9:45 am Dari Pham MD [REFERRING] - 07/12/24 9:00 am Patient Instructions/Handouts: Hydrocodone/Acetaminophen (By mouth), Metronidazole (By mouth), Levofloxacin (By mouth), Abscess (GEN) Activity/Diet/Wound Care/Special Instructions: No driving while taking [place] Soak in tub 2 times daily with warm soapy water Very light activity until you are reevaluated at your follow up appointment with your surgeon Please see PCP at [facility] Address: [address] [place] [id number] Discharge/Stand Alone Forms: Area PCPs Discharge Disposition: HOME SELF-CARE
== END 2024-07-05 14:02 | disposition home or self-care (01) ==
LOC: EC 17:05 → INTOOBSV 23:21 → 5NMEDONC 23:21
PROVIDERS: ADMIT Internal Medicine; ATTEND Internal Medicine
DX: A41.9 Sepsis, unspecified organism (principal); K61.1 Rectal abscess; E86.1 Hypovolemia; E87.1 Hypo-osmolality and hyponatremia; F41.9 Anxiety disorder, unspecified; Z87.891 Personal history of nicotine dependence
CPT/HCPCS: 36415; 74177; 80048; 80053; 80202; 82565; 83605; 85025; 85652; 86140; 87040; 87070; 87075; 87077; 87186; 87205; 96365; 96366; 96367; 96372; 99284